=== PATIENT | male | born 1960 | race African-American/Black ===

== ENCOUNTER 2017-10-12 22:40 | Emergency (ER) | payer MEDICAID ==
[~2017-10-12] VITALS: Ht 177.8 cm; Wt 84.0 kg
[2017-10-13] MEDS ORDERED: ALBUTEROL (0.083%) 2.5MG/3ML NEB HHN STA (02:04)
[2017-10-13] MEDS ORDERED: METHYLPREDNISOLONE SOD SUCC 125 MG/2 ML VIAL IV STA (02:04)
[2017-10-13] MEDS ORDERED: IPRATROPIUM BROMIDE (0.02%) 0.5MG/2.5ML NEB HHN STA (02:04)
[2017-10-13 02:32] LABS: BASOPHILS % 0.5 % (0.0-2.0); EOSINOPHILS % 7.9 % (0.0-5.0); HEMATOCRIT. 39.7 % (42.0-52.0); HEMOGLOBIN. 13.1 g/dL (14.0-18.0); LYMPHOCYTES % 30.8 % (20.0-50.0); MEAN CORPUSCULAR VOLUME 81.9 fL (80.0-94.0); MEAN PLATELET VOLUME 8.1 fl (7.4-10.4); MONOCYTES % 5.8 % (2.0-8.0); PLATELET 143 x1000/uL (130-400); RED BLOOD CELL COUNT 4.85 mill/uL (4.7-6.1); RED CELL DISTRIBUTION WIDTH 14.9 % (11.6-14.6)
[2017-10-13] MEDS ORDERED: ALBUTEROL (0.5%) 2.5MG/0.5ML NEB HHN ONE (02:35)
[2017-10-13 02:49] LABS: CARBON DIOXIDE 27 mEq/L (21-32); TROPONIN I < 0.02 ng/mL (0.00-0.04)
[2017-10-13 03:00] LABS: CHLORIDE 100 mEq/L (98-107)
[2017-10-13 06:14] VITALS: BP 139/79
[2017-10-17] MEDS ORDERED: EMTR1TAB12 PO (23:46)
[2017-10-17] MEDS ORDERED: GEMF600T3 PO (23:46)
[2017-10-17] MEDS ORDERED: ASPI-1159 PO (23:46)
[2017-10-17] MEDS ORDERED: MULT-1146 PO (23:46)
[2017-10-17] MEDS ORDERED: DOLU50TA PO (23:46)
[2017-10-17] MEDS ORDERED: BENA20TA3 PO (23:46)
[2017-10-17] MEDS ORDERED: CARV3.1242 PO (23:46)
[2017-10-17] MEDS ORDERED: ATOR20TA PO (23:46)
[2017-10-17] MEDS ORDERED: TRIA1TAB92 PO (23:46)
== END 2017-10-13 06:17 | disposition home or self-care (01) ==
LOC: ER 23:11
DX: R06.02 Shortness of breath (principal); J45.909 Unspecified asthma, uncomplicated; I10 Essential (primary) hypertension; I42.9 Cardiomyopathy, unspecified; I44.7 Left bundle-branch block, unspecified; Z20.6 Contact with and (suspected) exposure to human immunodeficiency virus [HIV]; Z98.1 Arthrodesis status
CPT/HCPCS: 36415; 71010; 80048; 83605; 83880; 84484; 85025; 87040; 93005; 94644; 96374; 99285; J2930; J7611; Z7610

== ENCOUNTER 2019-11-19 09:36 | Day surgery (SDC) | payer MEDICAID ==
[~2019-11-19] VITALS: Ht 175.3 cm; Wt 108.9 kg
[~2019-11-19 09:36] MED LIST: ASPI-1497 PO; ATOR20TA PO; BENA20TA10 PO; CARV3.1242 PO; CLOP75TA33 PO; DOLU50TA PO; EMTR1TAB12 PO; GEMF600T5 PO; MULT-1146 PO; THIA100T72 PO; TRIA1TAB92 PO
[2019-11-19] MEDS ORDERED: LIDOCAINE HCL 1% 20ML VIAL (Pyxis) INJ ONE (10:23)
[2019-11-19] MEDS ORDERED: ALBU6.7H9 INH (10:42)
[2019-11-19] MEDS ORDERED: ATOR-2 PO (10:42)
[2019-11-19] MEDS ORDERED: HEPARIN SODIUM 1,000 UNIT/1ML VIAL IV ONE (10:42)
[2019-11-19] MEDS ORDERED: FENTANYL CITRATE/PF 50MCG/ML 2ML VIAL ONE (10:50)
[2019-11-19] MEDS ORDERED: MIDAZOLAM HCL 2 MG/2 ML VIAL ONE (10:50)
[2019-11-19 16:24] LABS: BASOPHILS % 0.4 % (0.0-2.0); EOSINOPHILS % 2.8 % (0.0-5.0); HEMATOCRIT. 36.9 % (42.0-52.0); LYMPHOCYTES % 36.1 % (20.0-50.0); MEAN CORPUSCULAR HEMOGLOBIN 27.8 pg (28.0-32.0); MEAN CORPUSCULAR VOLUME 85.6 fL (80.0-94.0); MONOCYTES % 7.1 % (2.0-8.0); NEUTROPHILS % 53.6 % (40.0-76.0); PLATELET 150 x1000/uL (130-400); RED BLOOD CELL COUNT 4.31 mill/uL (4.7-6.1); RED CELL DISTRIBUTION WIDTH 14.6 % (11.6-14.6)
[2019-11-19 16:29] LABS: CHLORIDE 105 mEq/L (98-107)
[2019-11-19 16:42] LABS: INR 1.1; PROTHROMBIN TIME 11.5 sec (9.6-11.0)
[2019-11-19] MEDS ORDERED: ALLOPURINOL 300 MG TABLET PO SCH (21:00)
[2019-11-19] MEDS ORDERED: ASCORBIC ACID 500 MG TABLET PO NR (21:00)
[2019-11-20] MEDS ORDERED: ALLOPURINOL 300 MG TABLET PO SCH (05:30)
== END 2019-11-19 19:05 | disposition home or self-care (01) ==
LOC: CCL 09:36
PROVIDERS: ATTEND Specialist
DX: I25.10 Atherosclerotic heart disease of native coronary artery without angina pectoris (principal); I10 Essential (primary) hypertension; E78.5 Hyperlipidemia, unspecified; Z79.82 Long term (current) use of aspirin; Z79.899 Other long term (current) drug therapy; Z95.1 Presence of aortocoronary bypass graft; Z98.890 Other specified postprocedural states
CPT/HCPCS: 36415; 71045; 80053; 83735; 85025; 85610; 86850; 86900; 86901; 93005; 93458; 93880; 93970; 99152; 99153; C1760; C1769; C1887; C1893; J1644; J2250; J3010; J3490; G0500

== ENCOUNTER 2019-11-23 00:18 | Inpatient (IN) | payer MEDICAID ==
[2019-11-23] VITALS (43 sets, daily range): BP systolic 111–183; BP diastolic 56–109
[~2019-11-23] VITALS: Ht 175.3 cm; Wt 109.3 kg
[~2019-11-23 00:18] MED LIST changes: +ALBU6.7H9 INH; +ATOR-2 PO; -ATOR20TA PO
[2019-11-23] MEDS ORDERED: SODIUM CHLORIDE 0.9% 1,000 ML IV ONE (00:54)
[2019-11-23 01:05] LABS: BASOPHILS % 0.2 % (0.0-2.0); EOSINOPHILS % 3.4 % (0.0-5.0); HEMATOCRIT. 36.7 % (42.0-52.0); HEMOGLOBIN. 11.9 g/dL (14.0-18.0); LYMPHOCYTES % 37.6 % (20.0-50.0); MEAN CORPUSCULAR HEMOGLOBIN 27.7 pg (28.0-32.0); MEAN CORPUSCULAR VOLUME 85.2 fL (80.0-94.0); MEAN PLATELET VOLUME 7.9 fl (7.4-10.4); NEUTROPHILS % 49.8 % (40.0-76.0); PLATELET 158 x1000/uL (130-400)
[2019-11-23 01:11] LABS: CHLORIDE 105 mEq/L (98-107)
[2019-11-23] MEDS ORDERED: PAPAVERINE HCL 180MG in SODIUM CHLORIDE 0.9% 24ML IV ONE (05:00)
[2019-11-23] MEDS ORDERED: NICARDIPINE 50 MG in NS 250 ML IV ONE (05:00)
[2019-11-23] MEDS ORDERED: INSULIN REGULAR (DRIP) 100 UNITS in SODIUM CHLORIDE 0.9% 99 ML IV ONE (05:00)
[2019-11-23] MEDS ORDERED: DOBUTAMINE 250MG PREMIX 250 ML IV ONE (05:00)
[2019-11-23] MEDS ORDERED: EPINEPHRINE 4 MG in DEXT 5% WATER 246 ML IV ONE (05:00)
[2019-11-23] MEDS ORDERED: ELECTROLYTE S IV SCH (05:00)
[2019-11-23] MEDS ORDERED: AMINOCAPROIC ACID 10,000 MG in SODIUM CHLORIDE 0.9% 460 ML IV ONE (05:00)
[2019-11-23] MEDS ORDERED: CEFAZOLIN 2,000 MG in DEXT 5% WATER 100 ML IV ONE (05:00)
[2019-11-23] MEDS ORDERED: DEL NIDO ELECTROLYTE-S(PH 7.4) 1,000 ML IV ONE ×2 (05:00)
[2019-11-23] MEDS ORDERED: PHENYLEPHRINE 10 MG in DEXT 5% WATER 249 ML IV ONE (05:00)
[2019-11-23] MEDS ORDERED: NOREPINEPHRINE 4 MG in DEXT 5% WATER 246 ML IV ONE (05:00)
[2019-11-23] MEDS ORDERED: DOPAMINE 400MG/250ML PREMIX 250 ML IV SCH (05:15)
[2019-11-23] MEDS ORDERED: DILTIAZEM HCL 5MG/ML 10ML VIAL IV PRN (05:30)
[2019-11-23 05:55] LABS: BASOPHILS % 0.4 % (0.0-2.0); EOSINOPHILS % 3.4 % (0.0-5.0); HEMATOCRIT. 35.8 % (42.0-52.0); HEMOGLOBIN. 11.6 g/dL (14.0-18.0); LYMPHOCYTES % 34.1 % (20.0-50.0); MEAN CORPUSCULAR HEMOGLOBIN 27.7 pg (28.0-32.0); MEAN CORPUSCULAR VOLUME 85.3 fL (80.0-94.0); MEAN PLATELET VOLUME 8.1 fl (7.4-10.4); NEUTROPHILS % 53.1 % (40.0-76.0); PLATELET 153 x1000/uL (130-400); RED BLOOD CELL COUNT 4.19 mill/uL (4.7-6.1); RED CELL DISTRIBUTION WIDTH 14.9 % (11.6-14.6)
[2019-11-23 06:04] LABS: INR 1.2; PROTHROMBIN TIME 11.8 sec (9.6-11.0)
[2019-11-23 06:06] LABS: CHLORIDE 108 mEq/L (98-107)
[2019-11-23] MEDS ORDERED: SKIN ADHESIVE 0.7 GM EA TOP ONE (06:08)
[2019-11-23] MEDS ORDERED: THROMBIN (BOVINE) 5000 UNITS/VIAL TOP ONE (06:09)
[2019-11-23] MEDS ORDERED: NORMAL SALINE 0.9% 10 ML SYR ONE (06:09)
[2019-11-23] MEDS ORDERED: BACITRACIN 15GM TUBE TOP ONE (06:09)
[2019-11-23] MEDS ORDERED: BACITRACIN 50,000 UNITS/VIAL ONE (06:09)
[2019-11-23] MEDS ORDERED: SODIUM CHLORIDE 0.9% 6,000 ML ONE (06:10)
[2019-11-23] MEDS ORDERED: SODIUM CHLORIDE 0.9% IRRIG SOL 8,000 ML IR ONE (06:10)
[2019-11-23] MEDS ORDERED: MIDAZOLAM HCL 5 MG/5 ML VIAL ONE (06:28)
[2019-11-23 06:34] LABS: *AMPHETAMINES SCREEN URINE NEGATIVE (NEGATIVE); *BARBITURATES SCREEN URINE NEGATIVE (NEGATIVE); *BENZODIAZEPINES SCREEN URINE NEGATIVE (NEGATIVE); *COCAINE SCREEN URINE NEGATIVE (NEGATIVE); METHADONE URINE SCREEN NEGATIVE (NEGATIVE)
[2019-11-23 06:35] LABS: CANNABINOID URINE SCREEN NEGATIVE (NEGATIVE); OPIATES URINE SCREEN NEGATIVE (NEGATIVE); PHENCYCLIDINE URINE SCREEN NEGATIVE (NEGATIVE)
[2019-11-23] MEDS ORDERED: FUROSEMIDE 100MG/10ML VIAL ONE (06:59)
[2019-11-23] MEDS ORDERED: FENTANYL CITRATE/PF 50MCG/ML 5ML VIAL ONE (07:20)
[2019-11-23] MEDS ORDERED: CALCIUM CHLORIDE 1GM/10ML SYR IV ONE ×2 (07:33→09:29)
[2019-11-23] MEDS ORDERED: PHENYLEPHRINE HCL 10 MG/ML 1ML (IV VIAL) IV ONE (07:33)
[2019-11-23] MEDS ORDERED: AMINOCAPROIC ACID 250 MG/ML 20ML VIAL ONE (07:33)
[2019-11-23] MEDS ORDERED: SODIUM BICARBONATE 8.4% 1 MEQ/ML 50ML SYR IV ONE (07:33)
[2019-11-23] MEDS ORDERED: ALBUMIN HUMAN 25GM/100ML (25%) IV ONE (07:33)
[2019-11-23] MEDS ORDERED: HEPARIN 1000 UNITS/ML 10ML ONE (07:34)
[2019-11-23] MEDS ORDERED: HEPARIN 10,000 UNITS/ML VIAL ONE ×2 (07:34→08:27)
[2019-11-23] MEDS ORDERED: DOPAMINE 400MG/250ML PREMIX 250 ML IV ONE (08:26)
[2019-11-23] MEDS ORDERED: ALBUMIN HUMAN 12.5G/250ML (5%) IV ONE (08:26)
[2019-11-23] MEDS ORDERED: ESMOLOL HCL 10MG/ML 10ML VIAL IV ONE (08:26)
[2019-11-23] MEDS ORDERED: PROPOFOL 10MG/ML 100ML 100 ML IV ONE ×2 (08:26→09:50)
[2019-11-23] MEDS ORDERED: SUCCINYLCHOLINE CHLORIDE 200MG/10ML IV ONE (08:26)
[2019-11-23] MEDS ORDERED: DEXAMETHASONE 4MG/ML 1ML VIAL ONE (08:27)
[2019-11-23] MEDS ORDERED: ONDANSETRON HCL 4MG/2ML INJ ONE (08:27)
[2019-11-23] MEDS ORDERED: ROCURONIUM BROMIDE 10MG/ML VIAL 5ML IV ONE (08:27)
[2019-11-23] MEDS ORDERED: PAPAVERINE HCL 180MG in SODIUM CHLORIDE 0.9% 24ML IV NR (08:45)
[2019-11-23] MEDS ORDERED: DOPAMINE 400MG/250ML PREMIX 250 ML IV PRN (11:05)
[2019-11-23] MEDS ORDERED: SODIUM CHLORIDE 0.9% 500 ML IV PRN (11:05)
[2019-11-23] MEDS ORDERED: MAGNESIUM 2 G PREMIX 50 ML IV PRN (11:15)
[2019-11-23] MEDS ORDERED: EPINEPHRINE 1 MG in DEXT 5% WATER 250 ML IV PRN (11:15)
[2019-11-23] MEDS ORDERED: ACETAMINOPHEN 325MG TABLET PO PRN (11:15)
[2019-11-23] MEDS ORDERED: MORPHINE SULFATE 2 MG/ML CPJ (NOT FOR IM USE) IV PRN (11:15)
[2019-11-23] MEDS ORDERED: CALCIUM CHLORIDE 5,000 MG in DEXT 5% WATER 500 ML IV PRN (11:15)
[2019-11-23] MEDS ORDERED: MAGNESIUM SULFATE 3 GM in DEXT 5% WATER 100 ML IV PRN ×2 (11:15→23:45)
[2019-11-23] MEDS ORDERED: INSULIN REGULAR (DRIP) 100 UNITS in SODIUM CHLORIDE 0.9% 99 ML IV PRN (11:21)
[2019-11-23] MEDS ORDERED: KCL 10MEQ/50ML PREMIX 200 ML IV PRN ×2 (11:30→23:45)
[2019-11-23] MEDS ORDERED: KCL 10MEQ/50ML PREMIX 150 ML IV PRN ×2 (11:30→23:45)
[2019-11-23] MEDS ORDERED: DEXTROSE 50% WATER 50ML SYRINGE IV PRN ×2 (11:30)
[2019-11-23] MEDS ORDERED: EPINEPHRINE 1 MG in DEXT 5% WATER 249 ML IV PRN (11:45)
[2019-11-23] MEDS ORDERED: EPINEPHRINE 1 MG in SODIUM CHLORIDE 0.9% 250 ML IV PRN (11:45)
[2019-11-23] MEDS ORDERED: KETOROLAC 30MG/ML VIAL ONE (11:51)
[2019-11-23 11:59] LABS: BG BASE EXCESS -4.2 mmol/L (-2.0-2.0); BG CARBOXYHEMOGLOBIN 0.6 % (0.5-1.5); BG DEOXYHEMOGLOBIN 1.3 % (0.0-5.0); BG FRACTION INSPIRED OXYGEN 60; BG HCO3 ACT 25.4 mmol/L (22.0-26.0); BG METHEMOGLOBIN 0.4 % (0.0-1.5); BG OXYGEN SATURATION 98.7 % (92.0-98.5); BG OXYHEMOGLOBIN 97.7 % (94.0-97.0); BG PCO2 71.5 mmHg (35.0-45.0); BG PH 7.169 (7.350-7.450); BG PO2 181.3 mmHg (75.0-100.0); BG SAMPLE SITE A-LINE; BG TOTAL HEMOGLOBIN 11.9 g/dL (12.0-18.0); BG VENT MODE MASK - SIMPLE
[2019-11-23] MEDS: BLOOD SUGAR DIAGNOSTIC STRIP TEST SCH ×12 (12:00→23:26)
[2019-11-23] MEDS: KETOROLAC 15MG/ML VIAL IV SCH ×3 (12:00→23:25)
[2019-11-23] MEDS ORDERED: NITROGLYCERIN 50MG PREMIX 250 ML IV PRN (12:00)
[2019-11-23 12:03] LABS: BASOPHILS % 0.3 % (0.0-2.0); EOSINOPHILS % 1.6 % (0.0-5.0); HEMATOCRIT. 32.3 % (42.0-52.0); HEMOGLOBIN. 10.5 g/dL (14.0-18.0); LYMPHOCYTES % 18.4 % (20.0-50.0); MEAN CORPUSCULAR VOLUME 85.8 fL (80.0-94.0); MEAN PLATELET VOLUME 7.8 fl (7.4-10.4); MONOCYTES % 3.9 % (2.0-8.0); NEUTROPHILS % 75.8 % (40.0-76.0); PLATELET 131 x1000/uL (130-400); RED BLOOD CELL COUNT 3.76 mill/uL (4.7-6.1)
[2019-11-23] MEDS: DEXT 5%/0.45% NACL 1000ML 1,000 ML IV SCH (12:06)
[2019-11-23 12:13] LABS: CHLORIDE 106 mEq/L (98-107)
[2019-11-23] MEDS: MAGNESIUM 1 G PREMIX 100 ML IV PRN (12:21)
[2019-11-23] MEDS: KCL 10MEQ/50ML PREMIX 100 ML IV PRN ×2 (12:21→22:48)
[2019-11-23 12:23] LABS: INR 1.2; PROTHROMBIN TIME 12.5 sec (9.6-11.0)
[2019-11-23] MEDS: FAMOTIDINE 20MG/2ML VIAL IV SCH (12:25)
[2019-11-23] MEDS: CEFAZOLIN 1000MG PREMIX 50 ML IV SCH ×2 (13:10→21:53)
[2019-11-23 14:42] LABS: BG BASE EXCESS -1.6 mmol/L (-2.0-2.0); BG CARBOXYHEMOGLOBIN 0.3 % (0.5-1.5); BG DEOXYHEMOGLOBIN 2.6 % (0.0-5.0); BG FRACTION INSPIRED OXYGEN 28; BG HCO3 ACT 24.1 mmol/L (22.0-26.0); BG METHEMOGLOBIN 0.1 % (0.0-1.5); BG OXYGEN SATURATION 97.4 % (92.0-98.5); BG PCO2 44.7 mmHg (35.0-45.0); BG PH 7.349 (7.350-7.450); BG SAMPLE SITE A-LINE; BG TOTAL HEMOGLOBIN 10.5 g/dL (12.0-18.0); BG VENT MODE NASAL CANNULA
[2019-11-23] MEDS: DOCUSATE SODIUM 100MG CAPSULE PO SCH (16:07)
[2019-11-23] MEDS: CLOPIDOGREL 75MG TABLET PO SCH (16:08)
[2019-11-23 16:33] LABS: HEMATOCRIT 29.4 % (42.0-52.0); HEMOGLOBIN 9.7 g/dL (14.0-18.0); MEAN CORPUSCULAR HEMOGLOBIN 27.9 pg (28.0-32.0); MEAN CORPUSCULAR VOLUME 84.9 fL (80.0-94.0); PLATELET 142 x1000/uL (130-400); RED BLOOD CELL COUNT 3.46 mill/uL (4.7-6.1); RED CELL DISTRIBUTION WIDTH 14.9 % (11.6-14.6)
[2019-11-23] MEDS: DOLUTEGRAVIR 50 MG PO SCH (16:36)
[2019-11-23] MEDS: DESCOVY PO SCH (16:37)
[2019-11-23 16:38] LABS: CHLORIDE 105 mEq/L (98-107); INR 1.1; PROTHROMBIN TIME 11.2 sec (9.6-11.0)
[2019-11-23] MEDS: BACITRACIN 15GM TUBE TOP SCH (17:00)
[2019-11-23] MEDS ORDERED: KCL 20MEQ/100ML PREMIX 100 ML IV ONE (17:15)
[2019-11-23] MEDS ORDERED: MAGNESIUM 1 G PREMIX 100 ML IV ONE (17:15)
[2019-11-23] MEDS ORDERED: FUROSEMIDE 40MG/4ML VIAL IVP ONE (17:15)
[2019-11-23] MEDS ORDERED: EPOETIN ALFA 10000UNITS/ML VIAL SUBCUT ONE (17:15)
[2019-11-23] MEDS ORDERED: EPOETIN ALFA 10000UNITS/ML VIAL IV ONE (17:30)
[2019-11-23] MEDS: OXYCODONE HCL/ACETAMINOPHEN 5/325MG TABLET PO PRN ×2 (18:02→22:25)
[2019-11-23] MEDS: ATORVASTATIN CALCIUM 40MG TABLET PO SCH (20:10)
[2019-11-23] MEDS: METOPROLOL TARTRATE 25MG TABLET PO SCH (20:10)
[2019-11-23] MEDS: IPRATROPIUM/ALBUTEROL 0.5-3(2.5)MG/3ML NEB HHN SCH (20:31)
[2019-11-23 22:02] LABS: BASOPHILS % 0.2 % (0.0-2.0); EOSINOPHILS % 0.2 % (0.0-5.0); HEMATOCRIT. 28.3 % (42.0-52.0); HEMOGLOBIN. 9.3 g/dL (14.0-18.0); LYMPHOCYTES % 17.8 % (20.0-50.0); MEAN PLATELET VOLUME 8.1 fl (7.4-10.4); MONOCYTES % 9.5 % (2.0-8.0); NEUTROPHILS % 72.3 % (40.0-76.0); PLATELET 138 x1000/uL (130-400); RED BLOOD CELL COUNT 3.33 mill/uL (4.7-6.1); RED CELL DISTRIBUTION WIDTH 14.6 % (11.6-14.6)
[2019-11-23 22:08] LABS: CHLORIDE 104 mEq/L (98-107)
[2019-11-23] MEDS ORDERED: FUROSEMIDE 40MG/4ML VIAL IVP NR (23:15)
[2019-11-23] MEDS ORDERED: MAGNESIUM 1 G PREMIX 100 ML IV PRN (23:45)
[2019-11-24] VITALS (43 sets, daily range): BP systolic 64–149; BP diastolic 25–124
[2019-11-24] MEDS ORDERED: KCL 20MEQ/100ML PREMIX 100 ML IV PRN
[2019-11-24] MEDS: BLOOD SUGAR DIAGNOSTIC STRIP TEST SCH ×12 (00:08→21:03)
[2019-11-24] MEDS: KCL 10MEQ/50ML PREMIX 100 ML IV PRN (00:09)
[2019-11-24] MEDS ORDERED: KCL 10MEQ/50ML PREMIX 100 ML IV PRN (00:15)
[2019-11-24] MEDS: IPRATROPIUM/ALBUTEROL 0.5-3(2.5)MG/3ML NEB HHN SCH ×6 (00:22→20:25)
[2019-11-24] MEDS: MAGNESIUM 2 G PREMIX 50 ML IV PRN ×2 (00:43→08:15)
[2019-11-24] MEDS: OXYCODONE HCL/ACETAMINOPHEN 5/325MG TABLET PO PRN ×2 (03:28→16:32)
[2019-11-24 05:22] LABS: BASOPHILS % 0.2 % (0.0-2.0); EOSINOPHILS % 0.5 % (0.0-5.0); HEMATOCRIT. 27.5 % (42.0-52.0); HEMOGLOBIN. 9.2 g/dL (14.0-18.0); LYMPHOCYTES % 23.4 % (20.0-50.0); MEAN CORPUSCULAR HEMOGLOBIN 28.1 pg (28.0-32.0); MEAN CORPUSCULAR VOLUME 84.3 fL (80.0-94.0); MEAN PLATELET VOLUME 7.5 fl (7.4-10.4); MONOCYTES % 10.5 % (2.0-8.0); NEUTROPHILS % 65.4 % (40.0-76.0); PLATELET 134 x1000/uL (130-400); RED BLOOD CELL COUNT 3.26 mill/uL (4.7-6.1); RED CELL DISTRIBUTION WIDTH 14.2 % (11.6-14.6)
[2019-11-24 05:29] LABS: CHLORIDE 104 mEq/L (98-107)
[2019-11-24] MEDS: KETOROLAC 15MG/ML VIAL IV SCH ×3 (05:41→17:18)
[2019-11-24] MEDS: CEFAZOLIN 1000MG PREMIX 50 ML IV SCH ×2 (05:41→16:32)
[2019-11-24] MEDS: DEXT 5%/0.45% NACL 1000ML 1,000 ML IV SCH (06:33)
[2019-11-24] MEDS ORDERED: FUROSEMIDE 40MG/4ML VIAL IVP SCH (08:00)
[2019-11-24] MEDS ORDERED: MAGNESIUM HYDROXIDE 400MG/5ML 30ML UDC PO SCH (08:00)
[2019-11-24] MEDS: BACITRACIN 15GM TUBE TOP SCH ×2 (08:54→16:17)
[2019-11-24] MEDS: FAMOTIDINE 20MG/2ML VIAL IV SCH (08:54)
[2019-11-24] MEDS: CLOPIDOGREL 75MG TABLET PO SCH (08:55)
[2019-11-24] MEDS: DOCUSATE SODIUM 100MG CAPSULE PO SCH (08:55)
[2019-11-24] MEDS: FUROSEMIDE 40MG TABLET PO SCH (08:56)
[2019-11-24] MEDS: LISINOPRIL 10MG TABLET PO SCH (08:56)
[2019-11-24] MEDS: DOLUTEGRAVIR 50 MG PO SCH (08:57)
[2019-11-24] MEDS: DESCOVY PO SCH (08:57)
[2019-11-24] MEDS: METOPROLOL TARTRATE 25MG TABLET PO SCH ×2 (08:57→20:11)
[2019-11-24] MEDS ORDERED: MINERAL OIL 30ML BOTTLE PO SCH (10:00)
[2019-11-24] MEDS ORDERED: DEXTROSE 50% WATER 50ML SYRINGE IV PRN (10:30)
[2019-11-24] MEDS: ONDANSETRON HCL 4MG/2ML INJ IV PRN ×2 (11:28→11:46)
[2019-11-24] MEDS: INSULIN LISPRO 100 UNITS/ML SUBCUT SCH ×3 (13:20→21:00)
[2019-11-24] MEDS: DOCUSATE SODIUM 250MG CAPSULE PO SCH (16:16)
[2019-11-24] MEDS: ATORVASTATIN CALCIUM 40MG TABLET PO SCH (20:11)
[2019-11-25] VITALS (14 sets, daily range): BP systolic 102–129; BP diastolic 61–76
[2019-11-25] MEDS: IPRATROPIUM/ALBUTEROL 0.5-3(2.5)MG/3ML NEB HHN SCH ×6 (00:23→22:12)
[2019-11-25] MEDS: KETOROLAC 15MG/ML VIAL IV SCH ×3 (00:56→11:53)
[2019-11-25] MEDS: BLOOD SUGAR DIAGNOSTIC STRIP TEST SCH ×4 (06:41→21:28)
[2019-11-25] MEDS: INSULIN LISPRO 100 UNITS/ML SUBCUT SCH ×4 (07:20→21:00)
[2019-11-25 07:38] LABS: BASOPHILS % 0.2 % (0.0-2.0); EOSINOPHILS % 1.1 % (0.0-5.0); HEMATOCRIT. 26.5 % (42.0-52.0); HEMOGLOBIN. 8.7 g/dL (14.0-18.0); LYMPHOCYTES % 22.7 % (20.0-50.0); MEAN CORPUSCULAR HEMOGLOBIN 28.2 pg (28.0-32.0); MEAN CORPUSCULAR VOLUME 86.1 fL (80.0-94.0); MEAN PLATELET VOLUME 8.1 fl (7.4-10.4); PLATELET 148 x1000/uL (130-400); RED BLOOD CELL COUNT 3.08 mill/uL (4.7-6.1); RED CELL DISTRIBUTION WIDTH 14.2 % (11.6-14.6)
[2019-11-25] MEDS: FAMOTIDINE 20MG/2ML VIAL IV SCH (08:24)
[2019-11-25] MEDS: FUROSEMIDE 40MG TABLET PO SCH (08:24)
[2019-11-25] MEDS: METOPROLOL TARTRATE 25MG TABLET PO SCH ×2 (08:24→21:00)
[2019-11-25] MEDS: DOLUTEGRAVIR 50 MG PO SCH (08:25)
[2019-11-25] MEDS: LISINOPRIL 10MG TABLET PO SCH (08:25)
[2019-11-25] MEDS: DOCUSATE SODIUM 250MG CAPSULE PO SCH ×2 (08:25→16:38)
[2019-11-25] MEDS: CLOPIDOGREL 75MG TABLET PO SCH (08:25)
[2019-11-25] MEDS: DESCOVY PO SCH (08:26)
[2019-11-25] MEDS: BACITRACIN 15GM TUBE TOP SCH ×2 (08:26→16:45)
[2019-11-25 08:28] LABS: CHLORIDE 99 mEq/L (98-107)
[2019-11-25] MEDS ORDERED: MINERAL OIL 30ML BOTTLE PO SCH (10:00)
[2019-11-25] MEDS: FERROUS SULFATE 300MG/5ML UDC PO SCH ×2 (11:52→16:38)
[2019-11-25] MEDS: OXYCODONE HCL/ACETAMINOPHEN 5/325MG TABLET PO PRN (16:39)
[2019-11-25] MEDS ORDERED: EPOETIN ALFA 10000UNITS/ML VIAL IV SCH (21:00)
[2019-11-25] MEDS: ATORVASTATIN CALCIUM 40MG TABLET PO SCH (21:29)
[2019-11-26] VITALS (13 sets, daily range): BP systolic 94–134; BP diastolic 55–96
[2019-11-26] MEDS: IPRATROPIUM/ALBUTEROL 0.5-3(2.5)MG/3ML NEB HHN SCH ×5 (05:12→17:23)
[2019-11-26] MEDS: BLOOD SUGAR DIAGNOSTIC STRIP TEST SCH ×3 (06:39→17:22)
[2019-11-26] MEDS: INSULIN LISPRO 100 UNITS/ML SUBCUT SCH ×3 (07:20→16:54)
[2019-11-26 07:24] LABS: BASOPHILS % 0.3 % (0.0-2.0); EOSINOPHILS % 1.3 % (0.0-5.0); HEMATOCRIT. 25.5 % (42.0-52.0); HEMOGLOBIN. 8.5 g/dL (14.0-18.0); LYMPHOCYTES % 24.6 % (20.0-50.0); MEAN CORPUSCULAR HEMOGLOBIN 28.4 pg (28.0-32.0); MEAN CORPUSCULAR VOLUME 85.3 fL (80.0-94.0); MEAN PLATELET VOLUME 7.8 fl (7.4-10.4); MONOCYTES % 8.8 % (2.0-8.0); PLATELET 176 x1000/uL (130-400); RED BLOOD CELL COUNT 2.99 mill/uL (4.7-6.1); RED CELL DISTRIBUTION WIDTH 14.1 % (11.6-14.6)
[2019-11-26 07:41] LABS: CHLORIDE 103 mEq/L (98-107)
[2019-11-26] MEDS: CLOPIDOGREL 75MG TABLET PO SCH (08:22)
[2019-11-26] MEDS: LISINOPRIL 10MG TABLET PO SCH (08:24)
[2019-11-26] MEDS: DOCUSATE SODIUM 250MG CAPSULE PO SCH ×2 (08:24→16:51)
[2019-11-26] MEDS: FUROSEMIDE 40MG TABLET PO SCH (08:25)
[2019-11-26] MEDS: FAMOTIDINE 20MG/2ML VIAL IV SCH (08:25)
[2019-11-26] MEDS: METOPROLOL TARTRATE 25MG TABLET PO SCH (08:25)
[2019-11-26] MEDS: DESCOVY PO SCH (08:26)
[2019-11-26] MEDS: DOLUTEGRAVIR 50 MG PO SCH (08:26)
[2019-11-26] MEDS: BACITRACIN 15GM TUBE TOP SCH ×2 (08:29→16:51)
[2019-11-26] MEDS ORDERED: FUROSEMIDE 100MG/10ML VIAL IVP NR (08:30)
[2019-11-26 09:09] LABS: ABSOLUTE LYMPHOCYTES 1.8 x10E3/uL (0.7-3.1); ABSOLUTE NEUTROPHILS 5.7 x10E3/uL (1.4-7.0); BASOPHILS 0 % (Not Estab.); HEMATOCRIT 26.9 % (37.5-51.0); HEMOGLOBIN 8.5 g/dL (13.0-17.7); IMMATURE GRANULOCYTES 0 % (Not Estab.); LYMPHOCYTES 21 % (Not Estab.); MEAN CORPUSCULAR HEMOGLOBIN 28.6 pg (26.6-33.0); MEAN CORPUSCULAR HGB CONC. 31.6 g/dL (31.5-35.7); MEAN CORPUSCULAR VOLUME 91 fL (79-97); MONOCYTES 11 % (Not Estab.); NEUTROPHILS 67 % (Not Estab.); PLATELETS 147 x10E3/uL (150-450); RBC 2.97 x10E6/uL (4.14-5.80); RED CELL DISTRIBUTION WIDTH 14.9 % (11.6-15.4); WBC 8.5 x10E3/uL (3.4-10.8)
[2019-11-26] MEDS: FERROUS SULFATE 300MG/5ML UDC PO SCH ×3 (09:23→16:50)
[2019-11-26 12:21] LABS: TOTAL IRON BINDING CAPACITY 354 ug/dL (250-450)
[2019-11-26] MEDS: OXYCODONE HCL/ACETAMINOPHEN 5/325MG TABLET PO PRN (12:31)
[2019-11-26 13:06] LABS: % CD 3 POS. LYMPHOCYTES 66.4 % (57.5-86.2); % CD 4 POS. LYMPHOCYTES 37.1 % (30.8-58.5); % CD 8 POS. LYMPH 31.5 % (12.0-35.5); ABSOLUTE CD 3 1195 /uL (622-2402); ABSOLUTE CD 4 HELPER 668 /uL (359-1519); ABSOLUTE CD 8 SUPPRESSOR 567 /uL (109-897); CD4/CD8 RATIO 1.18 (0.92-3.72)
== END 2019-11-26 19:28 | DRG 166 ==
LOC: ER 00:18 → EDBEDREQ 02:50 → EDBEDREQTM 02:50 → EDBEDREQSVC 02:50 → ENRESERV 03:49 → CVICU 05:19 → 3WST 11-24 23:44
PROVIDERS: ADMIT Internal Medicine; ATTEND Internal Medicine
PROC: 02100Z9 Bypass Coronary Artery, One Artery from Left Internal Mammary, Open Approach (ICD-10-PCS; principal; 2019-11-23)
PROC: 02100Z8 Bypass Coronary Artery, One Artery from Right Internal Mammary, Open Approach (ICD-10-PCS; 2019-11-23)
PROC: 021109W Bypass Coronary Artery, Two Arteries from Aorta with Autologous Venous Tissue, Open Approach (ICD-10-PCS; 2019-11-23)
PROC: 06BQ4ZZ Excision of Left Saphenous Vein, Percutaneous Endoscopic Approach (ICD-10-PCS; 2019-11-23)
DX: I25.110 Atherosclerotic heart disease of native coronary artery with unstable angina pectoris (principal); E66.01 Morbid (severe) obesity due to excess calories; I11.9 Hypertensive heart disease without heart failure; D64.9 Anemia, unspecified; E11.9 Type 2 diabetes mellitus without complications; E78.00 Pure hypercholesterolemia, unspecified; E78.5 Hyperlipidemia, unspecified; J45.909 Unspecified asthma, uncomplicated; I25.5 Ischemic cardiomyopathy; Z79.899 Other long term (current) drug therapy; Z79.82 Long term (current) use of aspirin; Z68.35 Body mass index [BMI] 35.0-35.9, adult; Z60.2 Problems related to living alone; Z71.89 Other specified counseling
CPT/HCPCS: 36415; 36600; 71045; 80048; 80053; 80305; 82375; 82728; 82805; 82962; 83036; 83540; 83550; 83735; 84484; 85025; 85027; 85347; 85520; 86359; 86360; 86850; 86900; 86920; 93005; 94640; 97110; 97116; 97163; 97166; 97530; 99285; C1729; C1751; C1758; J0330; J0690; J0885; J1100; J1250; J1265; J1644; J1815; J1885; J1940; J2250; J2370; J2405; J2440; J2704; J3010; J3475; J3480; J3490; J7030; J7040; J7050; J7060; J7620; L3908; P9041; P9047